=== PATIENT | female | born 1970 | race Caucasian/White ===

== ENCOUNTER 2020-02-29 14:21 | Emergency (ER) | payer OTHER ==
[~2020-02-29] VITALS: Ht 175.3 cm; Wt 108.9 kg
[~2020-02-29 14:21] MED LIST: AMBIENCR OR; APAP500 PO; BENADRYL25 MG PO; DEXILANT60 MG PO; FLEXERIL PO; HYDROCODON-ACE1 EAC1 PO; HYDROCODONE-AP1 EAC6 PO; HYDROXYCHLOROQ200 M1 PO; LORTAB 7.5/5001 TA1 PO; MAXALT MLT ODT10 M1; NEURONTIN600 MG PO; NORCO 5-325 TA1 EACH PO; PERCOCET 5-3251 EACH PO; ZOFRAN4 MG PO
[2020-02-29] MEDS ORDERED: NORFLEX100 MG PO (18:40)
[2020-02-29] MEDS ORDERED: NAPROSYN500 MG PO (18:40)
[2020-02-29 18:52] VITALS: BP 178/94
== END 2020-02-29 18:53 | disposition home or self-care (01) ==
LOC: ER 14:21
DX: S46.911A Strain of unspecified muscle, fascia and tendon at shoulder and upper arm level, right arm, initial encounter (principal); Z79.899 Other long term (current) drug therapy; Z88.8 Allergy status to other drugs, medicaments and biological substances; W18.39XA Other fall on same level, initial encounter; Y93.89 Activity, other specified; Y92.89 Other specified places as the place of occurrence of the external cause; Y99.8 Other external cause status

== ENCOUNTER 2020-09-01 09:24 | Emergency (ER) | payer OTHER ==
[~2020-09-01] VITALS: Ht 175.3 cm; Wt 113.4 kg
[~2020-09-01 09:24] MED LIST changes: +NAPROSYN500 MG PO; +NORFLEX100 MG PO
[2020-09-01] MEDS ORDERED: MELOXICAM15 MG PO (09:40)
[2020-09-01] MEDS ORDERED: APAP/CODEINE ELI5 M1 PO (12:25)
[2020-09-01] MEDS ORDERED: IMITREX 50 MG T50 MG PO (13:27)
[2020-09-01] MEDS ORDERED: AMITRIPTYLINE H50 M2 PO (13:27)
[2020-09-01] MEDS ORDERED: BUTALB-APAP-CA1 EACH PO (13:27)
[2020-09-01 13:40] VITALS: BP 174/80
== END 2020-09-01 13:41 | disposition home or self-care (01) ==
LOC: ER 09:24
DX: G43.909 Migraine, unspecified, not intractable, without status migrainosus (principal); R11.2 Nausea with vomiting, unspecified; M19.90 Unspecified osteoarthritis, unspecified site; Z79.899 Other long term (current) drug therapy; Z91.048 Other nonmedicinal substance allergy status; Z88.8 Allergy status to other drugs, medicaments and biological substances